=== PATIENT | male | born 1960 | race Caucasian/White ===

== ENCOUNTER 2018-12-19 19:22 | Inpatient (IN) | payer OTHER ==
[~2018-12-19] VITALS: Ht 172.7 cm; Wt 77.1 kg
[2018-12-20 00:37] LABS: BASOPHILS ABSOLUTE AUTO 0.05 K/mm3 (0.00-0.23); BASOPHILS PERCENT AUTO 0 % (0-2); EOSINOPHILS ABSOLUTE AUTO 0.03 K/mm3 (0.00-0.68); EOSINOPHILS PERCENT AUTO 0 % (0-6); Hematocrit 48.9 % (37.0-53.0); Hemoglobin 16.6 g/dL (13.5-17.5); IMMATURE GRAN ABSOLUTE AUTO 0.07 K/mm3 (0.00-0.10); IMMATURE GRAN PERCENT AUTO 1 % (0-1); LYMPHOCYTES ABSOLUTE AUTO 0.78 K/mm3 (0.84-5.20); LYMPHOCYTES PERCENT AUTO 5 % (21-46); MONOCYTES PERCENT AUTO 9 % (4-13); Mean Corpuscular HGB Conc 33.9 g/dL (31.5-36.5); Mean Corpuscular Volume 91 fL (80-100); Mean Platelet Volume 8.7 fL (9.1-12.4); NEUTROPHILS ABSOLUTE AUTO 13.13 K/mm3 (1.96-9.15); NEUTROPHILS PERCENT AUTO 85 % (41-73); Platelet Count 480 K/mm3 (150-400); RDW Coefficient Variation 13.2 % (11.7-14.2); RDW Standard Deviation 44.5 fL (35.1-46.3); Red Blood Cell Count 5.36 M/mm3 (4.30-5.90); White Blood Cell Count 15.46 K/mm3 (4.00-11.30)
[2018-12-20 00:54] LABS: Alanine Aminotransfer (ALT/SGP 13 U/L (12-78); Albumin, Blood 3.7 g/dL (3.4-5.0); Albumin/Globulin Ratio 0.9 (0.8-1.8); Alk Phos 130 U/L (50-136); Anion Gap 8 mmol/L (6-16); Aspartate Aminotrans (AST/SGOT 9 U/L (12-37); Bilirubin, Total 0.7 mg/dL (0.1-1.0); Blood Urea Nitrogen 16 mg/dL (8-24); Bun/Creatinine Ratio 17.8 (12.0-20.0); CO2, Blood 24 mmol/L (21-32); Calcium, Blood 9.4 mg/dL (8.5-10.1); Chloride, Blood 105 mmol/L (98-108); Glomerular Filtration Rate >60 (60-); Glucose, Blood 115 mg/dL (70-99); Potassium, Blood 3.6 mmol/L (3.5-5.5); Sodium, Blood 137 mmol/L (136-145); Total Protein, Blood 7.7 g/dL (6.4-8.2)
--- NOTE | 2018-12-20 02:24 | NUR ---
NEW ER ADMIT FOR LEFT THUMB ABSCESS. PT WAS ABLE TO STAND AND TRANSFER SELF TO BED, HOWEVER PT VERY WEAK AND UNSTEADY. PT APPEARS VERY UNKEMPT, DIRTY CLOTHES AND THUMB DRAINING FOUL PURULENT FLUID ON CHUCKS. PT REFUSES TO TAKE SHOWER AT THIS TIME. DID GET PT IN CLEAN GOWN WITH CLEAN SOCKS. LEFT THUMB WAS CLEANED, PHOTO TAKEN AND WRAPPED IN KERLEX AND SECURED WITH AQUILES WRAP. PT ALREADY RECEIVED 1L NS ALONG WITH ZOSYN IN ER. IV VANCO AND MAINTENANCE FLUIDS STARTED. REVIEWED ADMISSION ORDERS WITH PT ALONG WITH TREATMENT PLAN. NO FURTHER QUESTIONS AT THIS TIME.
--- NOTE | 2018-12-20 02:32 | NUR ---
PT WAS CONCERNED THAT BROTHER ASHLEE STILL IN ER PARKING LOT WAITING FOR HIM. CALLED SECURITY AND GAVE DESCRIPTION OF CAR AND BROTHERS NAME, SO THEY CAN UPDATE HIM, PER PT REQUEST.
--- NOTE | 2018-12-20 06:14 | NUR ---
SHIFT SUMMARY NEW ADMIT THIS AM. AAOX4. LEFT THUMB NOTED WITH MODERATE AMOUNTS DRAIANGE, 4X4 GAUZE WITH KERLEX + AQUILES WRAP PLACED. PT REPORTS DISCOMFORT AT TOLERABLE LEVEL SINCE ADMISSION TO FLOOR, NO NAUSEA/EMESIS. PT UP TO DANGLE AT BEDSIDE TO URINATE. ORIENTED TO ROOM + CALL LIGHT USE. DR ENGLISH NOTIFIED OF CONSULT PER ED. CALL LIGHT IN REACH + PT USES FOR ASSISTANCE.
--- NOTE | 2018-12-20 07:50 | NUR ---
PT LAYING IN BED NPO AWAITING ORTHO FOR POSS I&D TODAY OF THE L THUMB PT HAS DRESSING WITH AQUILES WRAP PT HAS SHADOWING SEROSANG WITH STRONG ODOR PT STATED IT WAS SWOLLEN AND RED AND HAD ANOTHER NAIL GROWING OVER TOP AND HE PULLED IT OFF AND IT STARTED TO DRAIN
--- NOTE | 2018-12-20 12:54 | NUR ---
PT TRANSPORTED TO DAY SURG
--- NOTE | 2018-12-20 14:34 | NUR ---
12/20/18 1434 Nicolasa Garcia PT ON SCHEDULED IV ANTIBIOTICS
--- NOTE | 2018-12-20 15:40 | NUR ---
pt arrived back to room 209 from pacu s/p i&d of l thumb and amp of the top of the thumb to the first joint pt has bulky dressing cdi pt reports min pain 2/10 no numbness pt hungry no nausea reg food given family at bedside pt able to stand and move over to bed
[2018-12-20 16:08] LABS: Hematocrit 41.5 % (37.0-53.0); Hemoglobin 13.7 g/dL (13.5-17.5); Mean Platelet Volume 8.6 fL (9.1-12.4); Platelet Count 372 K/mm3 (150-400); RDW Coefficient Variation 13.3 % (11.7-14.2); RDW Standard Deviation 46.2 fL (35.1-46.3); Red Blood Cell Count 4.42 M/mm3 (4.30-5.90); White Blood Cell Count 8.28 K/mm3 (4.00-11.30)
[2018-12-20 16:09] LABS: Mean Corpuscular Volume 94 fL (80-100)
[2018-12-20 16:56] LABS: Alanine Aminotransfer (ALT/SGP 10 U/L (12-78); Albumin, Blood 2.9 g/dL (3.4-5.0); Albumin/Globulin Ratio 0.9 (0.8-1.8); Alk Phos 90 U/L (50-136); Anion Gap 5 mmol/L (6-16); Aspartate Aminotrans (AST/SGOT 8 U/L (12-37); Bilirubin, Total 0.7 mg/dL (0.1-1.0); Blood Urea Nitrogen 15 mg/dL (8-24); Bun/Creatinine Ratio 13.9 (12.0-20.0); CO2, Blood 25 mmol/L (21-32); Calcium, Blood 8.6 mg/dL (8.5-10.1); Chloride, Blood 109 mmol/L (98-108); Creatinine, Blood 1.08 mg/dL (0.60-1.20); Globulin, Blood 3.3 g/dL (2.2-4.0); Glomerular Filtration Rate >60 (60-); Glucose, Blood 101 mg/dL (70-99); Sodium, Blood 139 mmol/L (136-145); Total Protein, Blood 6.2 g/dL (6.4-8.2)
--- NOTE | 2018-12-20 17:30 | NUR ---
dinner tray did not come reg tray to be ordered [place] in the order set pt has snacks and family brought in [employer]
--- NOTE | 2018-12-20 18:58 | NUR ---
pt eating dinner tray meds given as sched earlier pt went out side iv unhooked
--- NOTE | 2018-12-21 05:05 | NUR ---
SHIFT SUMMARY LYING IN SEMI FOWLERS WITH EYES OPEN. MEDICATED FOR PAIN X 2, NO FURTHER C/O DISCOMFORT THIS SHIFT. DENEIS FURTHER NEEDS OR WANTS AT THIS TIME. SAFETY MEAUSRES IN PLACE. WILL GIVE HAND OFF TO ONCOMING SHIFT USING SBAR.
[2018-12-21 05:30] LABS: BASOPHILS ABSOLUTE AUTO 0.03 K/mm3 (0.00-0.23); BASOPHILS PERCENT AUTO 0 % (0-2); EOSINOPHILS ABSOLUTE AUTO 0.01 K/mm3 (0.00-0.68); EOSINOPHILS PERCENT AUTO 0 % (0-6); Hematocrit 39.7 % (37.0-53.0); Hemoglobin 13.1 g/dL (13.5-17.5); IMMATURE GRAN ABSOLUTE AUTO 0.04 K/mm3 (0.00-0.10); IMMATURE GRAN PERCENT AUTO 0 % (0-1); LYMPHOCYTES ABSOLUTE AUTO 0.82 K/mm3 (0.84-5.20); LYMPHOCYTES PERCENT AUTO 8 % (21-46); MONOCYTES ABSOLUTE AUTO 0.96 K/mm3 (0.16-1.47); MONOCYTES PERCENT AUTO 9 % (4-13); Mean Corpuscular HGB 30.9 pg (26.0-34.0); Mean Corpuscular Volume 94 fL (80-100); Mean Platelet Volume 9.4 fL (9.1-12.4); NEUTROPHILS ABSOLUTE AUTO 8.36 K/mm3 (1.96-9.15); NEUTROPHILS PERCENT AUTO 82 % (41-73); Platelet Count 390 K/mm3 (150-400); RDW Coefficient Variation 13.3 % (11.7-14.2); Red Blood Cell Count 4.24 M/mm3 (4.30-5.90); White Blood Cell Count 10.22 K/mm3 (4.00-11.30)
[2018-12-21 05:52] LABS: Anion Gap 5 mmol/L (6-16); Blood Urea Nitrogen 24 mg/dL (8-24); Bun/Creatinine Ratio 19.8 (12.0-20.0); CO2, Blood 29 mmol/L (21-32); Calcium, Blood 8.6 mg/dL (8.5-10.1); Chloride, Blood 105 mmol/L (98-108); Creatinine, Blood 1.21 mg/dL (0.60-1.20); Glomerular Filtration Rate >60 (60-); Glucose, Blood 127 mg/dL (70-99); Potassium, Blood 3.8 mmol/L (3.5-5.5); Sodium, Blood 139 mmol/L (136-145)
[2018-12-21 10:34] LABS: Vancomycin, Trough 14.4 ug/mL (5.0-10.0)
--- NOTE | 2018-12-21 17:56 | NUR ---
SHIFT SUMMARY PT HAS DECLINES PAIN MEDICATION T/O MY SHIFT. HAS WIGGLED FINGERS WHENEVER ASKED AND KEEPS L ARM ELEVATED. F/U APPOINTMENT MADE WITH ORTHO FOR NEXT WEEK. RASHID AGUILAR.
[2018-12-22 04:59] LABS: BASOPHILS ABSOLUTE AUTO 0.06 K/mm3 (0.00-0.23); BASOPHILS PERCENT AUTO 1 % (0-2); EOSINOPHILS ABSOLUTE AUTO 0.14 K/mm3 (0.00-0.68); EOSINOPHILS PERCENT AUTO 3 % (0-6); Hematocrit 39.3 % (37.0-53.0); Hemoglobin 12.9 g/dL (13.5-17.5); IMMATURE GRAN ABSOLUTE AUTO 0.03 K/mm3 (0.00-0.10); IMMATURE GRAN PERCENT AUTO 1 % (0-1); LYMPHOCYTES ABSOLUTE AUTO 1.69 K/mm3 (0.84-5.20); LYMPHOCYTES PERCENT AUTO 30 % (21-46); MONOCYTES ABSOLUTE AUTO 0.56 K/mm3 (0.16-1.47); MONOCYTES PERCENT AUTO 10 % (4-13); Mean Corpuscular HGB 30.9 pg (26.0-34.0); Mean Corpuscular HGB Conc 32.8 g/dL (31.5-36.5); Mean Corpuscular Volume 94 fL (80-100); Mean Platelet Volume 8.7 fL (9.1-12.4); NEUTROPHILS ABSOLUTE AUTO 3.23 K/mm3 (1.96-9.15); NEUTROPHILS PERCENT AUTO 57 % (41-73); Platelet Count 349 K/mm3 (150-400); RDW Coefficient Variation 13.6 % (11.7-14.2); Red Blood Cell Count 4.18 M/mm3 (4.30-5.90); White Blood Cell Count 5.71 K/mm3 (4.00-11.30)
--- NOTE | 2018-12-22 06:08 | NUR ---
SHIFT SUMMARY LYING IN SEMI FOWLERS WITH EYES CLOSED. MEDICATED FOR PAIN X 1, NO FURTHER C/O DISCOMFORT THIS SHIFT. DENIES FURTHER NEEDS OR WANTS AT THIS TIME. SAFETY MEAUSRES IN PLACE. WILL GIVE HAND OFF TO ONCOMING SHIFT USING SBAR.
[2018-12-22] MEDS ORDERED: ACET325 PO (11:28)
[2018-12-22] MEDS ORDERED: Norco 7.5-3251 EACH PO (11:28)
[2018-12-22] MEDS ORDERED: Augmentin 875-1 EACH PO (11:29)
[2018-12-22] MEDS ORDERED: ONDA4ODT MM (11:29)
[2018-12-22] MEDS ORDERED: Florastor250 MG PO (11:29)
--- NOTE | 2018-12-22 12:03 | NUR ---
DISCHARGE SUMMARY PT A&OX4, VSS, LEFT FLOOR WITH FAMILY TO GO HOME WITH PERSONAL POSSESSIONS INCLUDING DISCHARGE PACKET INCLUDING 1 NARC SCRIPT. DISCHARGE INSTRUCTIONS PROVIDED. PT REP UNDERSTANDING THOSE INSTRUCTIONS INCLUDING THE IMPORTANCE OF TAKING THE ORAL ANTIBIOTIC AND FOLLOW UP APPOINTMENT WITH SURGEON; YESSI CALLED TO [facility] AND APPT MADE W/SURGEON. OREN EVERETT.
== END 2018-12-22 11:58 | disposition home or self-care (01) | DRG 513 ==
LOC: ER 19:22 → SURS 12-20 00:59 → ER 12-20 01:37 → SURS 12-20 02:00
PROVIDERS: Emergency Medicine; Family Medicine; Orthopaedic Surgery; ADMIT Internal Medicine
PROC: 0X6M0Z3 Detachment at Left Thumb, Low, Open Approach (ICD-10-PCS; principal; 2018-12-20 13:30)
DX: M86.142 Other acute osteomyelitis, left hand (principal); L02.512 Cutaneous abscess of left hand; F17.210 Nicotine dependence, cigarettes, uncomplicated
CPT/HCPCS: 36415; 73140; 80048; 80053; 80202; 83605; 85025; 85027; 87040; 99285-25; J1100; J1885; J2370; J2405; J2543; J2704; J3010; J3370; J7030; J7120